=== PATIENT | female | born 1955 | race Caucasian/White ===

== ENCOUNTER 2016-10-24 22:22 | Observation (INO) ==
--- NOTE | 2016-10-24 23:01 | Emergency Department Note ---
Disposition Clinical Impression: Paresthesias, Gait abnormality, Weakness Disposition: Admitted As Inpatient Condition: Fair Referrals: NO,PCP [Non-Partnered Physician] - Forms: ED Satisfaction Letter Time of Disposition: 02:32 Neuro HPI - General Chief Complaint: ED Neuro Symptoms/Deficit Stated Complaint: tingling in bilateral arms Time Seen by Provider: 10/24/16 22:31 Source: patient, EMS Limitations: no limitations Nursing Notes Reviewed: Yes Vital Signs Reviewed: Yes - History of Present Illness HPI Narrative: 61-year-old female with multiple neurologic symptoms including tingling and numbness in her bilateral upper and lower extremities. Patient was seen 5 days ago for the same complaints started 8 days ago, she initially just had weakness in her left arm and left leg, underwent CT scan basic lab work that was negative , and follow-up with Dr. Bañuelos the neurologist on Friday 10/27, she comes in with worsening complaints, generalized weakness and multiple neurologic complaints including the above and also paresthesias in her lips, aching pain in her right neck, pain in her mid back. Patient denies fever chills, she has no history of IV drug abuse, she has no history known history of MS. Denies weight loss weight gain, chest pain abdominal pain dysuria hematuria Onset of Symptoms Date: 10/18/16 Symptom Onset Unknown: Yes Location: left arm, right arm, other History of same: Yes Severity: mild Quality: weakness, numbness, tingling Symptoms Improving: No Context: gradual onset On Anticoagulants: No Associated symptoms: Reports: vertigo, weakness. Denies: confusion, chest pain , nausea/vomiting - Related Data Home Medications: Home Medications Medication Instructions Recorded Confirmed Cipro 02/20/16 Previous Rx's Medication Instructions Recorded HydrOXYzine Pamoate 25 mg PO QID PRN #20 capsule 02/20/16 PredniSONE [Deltasone] 20 mg PO DAILY #3 tablet 02/20/16 Aspirin [Lo-Dose Aspirin EC] 81 mg PO DAILY #20 tablet. 10/21/16 Lisinopril [Zestril] 10 mg PO DAILY #14 tablet 10/21/16 Allergies/Adverse Reactions: Allergies Allergy/AdvReac Type Severity Reaction Status Date / Time No Known Allergies Allergy Verified 10/21/16 13:07 Review of Systems: All systems were reviewed with historian and negative except as per below, or as documented in the HPI. Constitutional: Denies: fever, chills, weight changes Eyes: Denies: vision changes, eye pain ENT: Denies: nasal congestion, sore throat CV: Denies: chest pain, palpitations, leg swelling Resp: Denies: cough, dyspnea, wheezes, hemoptysis GI: Denies: abdominal pain, N/V/D/C, hematochezia, melena Denies: dysuria, hematuria MSK: Denies: back pain, neck pain, extremity pain Skin: Denies: new rashes, new lesions Neuro: dizziness, weakness, sensory changes, NAVA Denies: gait difficulty Psych: Denies: anxiety, depression All systems ED: reviewed and negative except as stated. Past Medical History - Past Medical History Attestation: Yes The following information was validated with the patient. Source: patient Medical history: Reports: no medical history Psychiatric history: Reports: no psych history - Social History Smoking Status: Never smoker Smokeless Tobacco Status: No Alcohol use: Reports: none Drug use: Reports: none Physical Exam Constitutional: Vitals viewed and are normal, appears moderately anxious. HEENT: NCAT, sclera anicteric, PERRLA bilaterally, normal external ears bilaterally, nasal septum nondeviated, average dentition, MMM Neck: normal inspection, neck is supple, trachea midline, no JVD Resp: normal chest inspection, CTA bilaterally, no resp distress, symmetric chest rise CV: RRR, no m/g/r, Pulses +2 Rad, +2 DP/PT bilaterally, no pedal edema GI: normal inspection, Soft, NTND, BS present and normoactive Back: normal inspection, no tenderness to palpation Neuro: A&O3, CN II-XII grossly intact bilaterally, no gross motor or sensory deficits bilaterally positive hints exam with slight bidirectional nystagmus MSK: normal inspection, bilateral UE and LE with normal ROM and no deformities Psych: Anxious Skin: No rashes, skin warm, dry, intact - General Limitations: no limitations General appearance: alert, in no apparent distress Course Course Narrative: 59-year-old female with multiple neurologic complaints, plain CT was negative without contrast with a CTA head and neck to evaluate for posterior symptomology vertebral artery patency, after this, plan admit for symptom control, - Reevaluation(s) Reevaluation #1: Admitted to Dr Prado medicine service for further eval and neurology consult. Time: 02:33 Vital Signs Temperature 97.7 F 10/24/16 22:23 Pulse Rate 83 10/24/16 22:23 Respiratory Rate 20 10/24/16 22:23 Blood Pressure 152/91 10/24/16 22:23 O2 Sat by Pulse Oximetry 99 10/24/16 22:23 Temperature 97.7 F 10/24/16 22:23 Pulse Rate 85 10/25/16 02:07 Respiratory Rate 16 10/25/16 02:07 Blood Pressure 130/76 10/25/16 02:07 O2 Sat by Pulse Oximetry 96 10/25/16 02:07 Oxygen Delivery Oxygen Delivery Room Air Neuro Symptoms/Deficit - MDM Narrative Medical decision making narrative: 61-year-old female with one half weeks of multiple neurologic symptoms including dizziness weakness gait abnormality, patient has essentially nonfocal neurologic exam except for a positive hints exam, but no other focal neurologic deficits, CT of head and neck were negative. Patient likely needs further workup with MRI imaging may be EMG testing and neurology consultation admitted to hospitalist service in stable condition - Differential Diagnosis Likely: cerebrovascular accident, subarachnoid hemorrhage, transient cerebral ischemia, convulsions - Medical Records Medical records reviewed: Yes I reviewed the patient's medical records. - Lab Data Lab results reviewed: Yes I reviewed the patient's lab results. Result diagrams: 10/24/16 23:36 10/24/16 23:36 Lab Results 10/24/16 10/24/16 Range/Units 23:36 23:36 WBC 8.9 (4.3-11.1) K/mcL RBC 4.85 (3.82-4.97) M/mcL Hgb 13.8 (11.5-15.4) g/dL Hct 41.1 (35.3-44.9) % MCV 84.7 (83.0-100.0) fL MCH 28.5 (28.0-33.3) pg MCHC 33.6 (31.6-35.5) g/dL RDW 12.4 (11.5-14.5) % Plt Count 268 (140-400) K/mcL MPV 10.3 (9.4-12.4) fL Immature Gran % 0.2 (0-4) % Seg Neutrophils % 63.3 % Lymphocytes % 27.1 % Monocytes % 7.5 % Eosinophils % 1.3 % Basophils % 0.6 % Neutrophils # 5.6 (1.6-8.9) K/mcL Lymphocytes # 2.4 (0.6-4.6) K/mcL Monocytes # 0.7 (0.0-1.3) K/mcL Eosinophils # 0.1 (0.0-0.6) K/mcL Basophils # 0.1 (0.0-0.2) K/mcL Immature Plt Fraction 5.6 (1.1-6.1) % Sodium 141 (136-145) mEq/L Potassium 4.0 (3.5-4.5) mEq/L Chloride 105 (98-109) mEq/L Carbon Dioxide 26 (19-29) mEq/L BUN 8 (7-20) mg/dL Creatinine 0.71 (0.57-1.11) mg/dL Est GFR ( Amer) > 60 (> 60) Est GFR (Non-Af Amer) > 60 (> 60) BUN/Creatinine Ratio 11 (6-26) Glucose 105 H (70-99) mg/dL Calculated Osmolality 291 (280-300) Calcium 10.0 (8.6-10.8) mg/dL - Radiology Data Radiology results reviewed: Yes I reviewed the patient's radiology results. Angiography CT 10/25/16 23:28 IMPRESSION: CT HEAD: Negative. CTA NECK: Negative. CTA HEAD: Negative. D/ / Tania Ramirez MD / Tania Ramirez MD Interpreting Provider: Tania Ramirez MD Neck CTA 10/25/16 23:28 IMPRESSION: CT HEAD: Negative. CTA NECK: Negative. CTA HEAD: Negative. D/ / Tania Ramirez MD / Tania Ramirez MD Interpreting Provider: Tania Ramirez MD Attestation Statement - Attestation Attestation: IOscar MD, personally performed a history and physical exam of the patient and discussed their management with the resident. I reviewed the resident's note and agree with the documented findings, medical decision making , and plan of care. 61-year-old female presents to the emergency department with a complaint of increasing numbness and tingling of her arms bilaterally. Symptoms started 5 days ago when she developed a headache and then developed some tingling and numbness sensation in her left hand. She was seen here 3 days ago for this and had a CT of the head which was negative. She has a follow-up appointment scheduled with neurology for Thursday however today the symptoms seemed to worsen and now the numbness and tingling involves both arms and down her back. No focal weakness. No difficulty with speech or swallowing or balance. No blurred vision or double vision. She does complain of some muscle aches and cramps. No fever. On examination patient is a well-developed well-nourished well-appearing female in no acute distress. She is alert and oriented 3. There is no cyanosis or diaphoresis. Neck is supple and nontender with no lymphadenopathy and full range of motion. No gross focal neurological deficits. Breath sounds are clear and equal bilaterally. Heart regular rate and rhythm. Labs reviewed and unremarkable. CTA of the head and neck was negative. The hospitalist, Dr. Prado, was consulted and accepted admission of the patient.
[2016-10-24] MEDS ORDERED: 0.9 % Sodium Chloride 1,000 ML IV ONE (23:29)
[2016-10-24] MEDS ORDERED: Ondansetron 4 MG/2 ML VIAL IVP ONE (23:30)
[2016-10-24 23:43] LABS: Basophils # 0.1 K/mcL (0.0-0.2); Basophils % 0.6 %; Eosinophils # 0.1 K/mcL (0.0-0.6); Eosinophils % 1.3 %; Hematocrit 41.1 % (35.3-44.9); Hemoglobin 13.8 g/dL (11.5-15.4); Immature Granulocytes % 0.2 % (0-4); Immature Platelets 5.6 % (1.1-6.1); Lymphocytes # 2.4 K/mcL (0.6-4.6); Lymphocytes % 27.1 %; Mean Corpuscular HGB Conc 33.6 g/dL (31.6-35.5); Mean Corpuscular Hemoglobin 28.5 pg (28.0-33.3); Mean Corpuscular Volume 84.7 fL (83.0-100.0); Mean Platelet Volume 10.3 fL (9.4-12.4); Monocytes # 0.7 K/mcL (0.0-1.3); Monocytes % 7.5 %; Neutrophils # 5.6 K/mcL (1.6-8.9); Platelet Count 268 K/mcL (140-400); Red Blood Count 4.85 M/mcL (3.82-4.97); Red Cell Distribution Width 12.4 % (11.5-14.5); Segmented Neutrophils % 63.3 %
[2016-10-24 23:56] LABS: BUN/Creatinine Ratio 11 (6-26); Blood Urea Nitrogen 8 mg/dL (7-20); Carbon Dioxide 26 mEq/L (19-29); Chloride 105 mEq/L (98-109); Glucose 105 mg/dL (70-99); Osmolality,Calculated 291 (280-300); Sodium 141 mEq/L (136-145); eGFR For African Americans > 60 (> 60); eGFR For Non-African Americans > 60 (> 60)
[2016-10-25] MEDS ORDERED: Orphenadrine 60 MG/2 ML VIAL IVP ONE (02:26)
[2016-10-25] MEDS ORDERED: *HR* HYDROmorphone (PF) 1 MG/ML SYRINGE IVP PRN (02:50)
[2016-10-25] MEDS ORDERED: Naloxone 0.4 MG/ML INJ IVP PRN (02:50)
[2016-10-25] MEDS ORDERED: *HR* OxyCODONE Immed Rel 5 MG TABLET PO PRN (02:50)
[2016-10-25] MEDS ORDERED: *HR* Promethazine 25 MG/ML VIAL IVP PRN (02:50)
[2016-10-25] MEDS ORDERED: Acetaminophen 325 MG TABLET PO PRN (02:50)
[2016-10-25] MEDS ORDERED: 0.9 % Sodium Chloride 1,000 ML IVC SCH (03:00)
[2016-10-25 03:28] LABS: VBG HCO3 31.9 mEq/L (21-27); VBG PH 7.38 pH Units (7.32-7.42)
[2016-10-25 03:32] LABS: Ionized Calcium 1.2 mmol/L (1.15-1.35)
[2016-10-25 03:40] LABS: Hemoglobin A1C 5.4 %
[2016-10-25 03:41] LABS: Magnesium 1.8 mg/dL (1.6-2.6); Phosphorous 3.2 mg/dL (2.3-4.7)
[2016-10-25 03:44] LABS: INR 1.1; Prothrombin Time 12.2 Seconds (9.4-12.1); Rheumatoid Factor < 15 IU/mL (0-29)
[2016-10-25 03:46] LABS: Activated Partial Thrombo Time 33.7 Seconds (26.0-36.0)
[2016-10-25 04:03] LABS: Triiodothyronine (T3) Free 2.89 pg/mL (1.71-3.71)
--- NOTE | 2016-10-25 04:07 | Internal Med History&Physical ---
<Divina Harrell - Last Filed: 10/25/16 05:54> Date of Encounter: 10/25/16 Time of Encounter: 04:05 Assessment and Plan (1) Neurological complaint Current visit: Yes Status: Acute Patient presents with multiple neurological complaints. These complaints had an acute onset, were progressive and changing over the last week. CT head negative and CTA negative - this ruled out any mass, strictures, aneurysms or bleeds. Will do MRI t evaluate for other serious concerns including MS, neuropathies or inflammation. Will get labs including thyroid panel, CRP, ESR, lactic acid, MARTIR, rheumatoid factor. Patient scheduled to see neurology on Thursday, will consult for evaluation as patient has presented with changing symptoms. Will monitor patient and treat symptoms. 1. MRI - head, cervical/thoracic/lumbar spine 2. Labs: thyroid panel, CRP, ESR, lactic acid, MARTIR... 3. Consult neurology 4. Supportive care (2) Hypertension Current visit: No Status: Acute Patient reports elevated blood pressures over the last 2 weeks. She has not been taking any medication at home. Will monitor blood pressure and treat if indicated. Qualifiers: Hypertension type: unspecified secondary hypertension Qualified Code(s): I15.9 - Secondary hypertension, unspecified; I15 - Secondary hypertension Internal Medicine - H&P: HPI Chief complaint: Neuological complaints Admitted From: Emergency Dept Plans for Post Hospital Care: Home History of present illness: Ms. Gardner is a 61 year old female who reports no significant PMH and takes no medications at home. Patient is here today with multiple neurological complaints. She reports that this all started 8 days ago. She was driving and she got a very bad headache. She reports that her whole head felt tight and heavy. She has no history of migraines. The next morning when she woke up her left arm and leg felt heavy and weak. She came to the ED because this 5 akhtar ago. At that time her CT head was negative and she was discharged home to follow up with neurology outpatient on 10/27. Since then the left sided symptoms have improved but today she noticed that her right hand started tingling and felt heavy. Patient also reports that when she looks at something she has a hard time focusing but denies any vertigo or loss of peripheral vision. Patient currently denies any headache, difficulty swallowing, shortness of breath, chest pain, nausea/vomiting, abdominal pain, changes in bowel or bladder function. She denies any change in gait, difficulty walking, falling or syncope. In the ED, patient was afebrile with vitals signs within normal limits. CTA head and neck were negative. On exam, patient is awake and alert, in no acute distress. Pupils are equal and reactive with minor horizontal nystagmus on exam. Heart regular rate and rhythm. Lungs clear to auscultation. Upper extremity strength +5/5 bilaterally with motor and sensation grossly intact. Lower extremity strenght + 5/5 bilaterally with motor and sensation grossly intact. Past Med Surg Social Fam HX - Past Medical History Medical history: no medical history Psychiatric history: no psych history - Social History Smoking Status: Never smoker Smokeless Tobacco Status: No Alcohol use: none Drug use: none Internal Medicine - H&P: Meds No Known Home Drugs 10/25/16 [History] Allergies No Known Allergies Allergy (Verified 10/21/16 13:07) All Systems PM: A 10-system review of systems was performed and is negative for pertinent findings except as documented above in the HPI. - Constitutional Constitutional: fatigue, weakness, no chills, no fever(s) - EENT Eyes: blurry vision, no diplopia, no loss of peripheral vision, no loss of vision Nose, mouth and throat: no dysphagia, no nasal congestion, no nasal obstruction , no sore throat - Cardiovascular Cardiovascular ROS IM: no chest pain, no dyspnea, no dyspnea on exertion, no irregular heart rhythm, no lightheadedness, no palpitations - Respiratory Respiratory: no cough, no dyspnea, no wheezing - Gastrointestinal Gastrointestinal: no abdominal pain, no constipation, no diarrhea, no dysphagia , no hematemesis, no hematochezia, no melena, no vomiting - Genitourinary Genitourinary: no change in urinary stream, no dysuria - Musculoskeletal Musculoskeletal ROS IM: back pain, muscle cramps, neck pain - Neurological Neurological ROS: headache(s), lack of coordination, numbness, paresthesias, tingling, weakness, no abnormal gait, no abnormal hearing, no abnormal speech, no behavioral changes, no confusion, no convulsions, no dizziness, no focal weakness, no frequent falls, no loss of vision, no memory loss, no vertigo - Constitutional Vitals: Temp Pulse Resp BP Pulse Ox 97.4 F L 76 16 132/75 96 10/25/16 03:57 10/25/16 03:57 10/25/16 03:57 10/25/16 03:57 10/25/16 03:57 General appearance: Present: A&O X 3, no acute distress, answers questions appropriately - Head Head exam: Present: atraumatic, normal inspection, normocephalic - Eye Eye exam: Present: normal appearance, nystagmus, PERRL, conjuntiva pink - Respiratory Respiratory exam: Present: CTAB. Absent: rales, respiratory distress, rhonchi, wheezes - Cardiovascular Cardiovascular exam: Present: RRR - GI/Abdominal GI/Abdominal exam: Present: soft. Absent: firm, normal bowel sounds, rebound, rigid, tenderness - Extremities Exam Extremities exam: Present: normal inspection. Absent: pedal edema - Neurological Exam Neurological exam: Present: alert, CN II-XII intact, oriented X3, no focal deficits, strengths equal and symetr throughout - Expanded Neurological Exam Neurological exam expanded: Present: protecting the airway. Absent: ataxia, expressive aphasia Patient oriented to: Present: person, place, time Speech: Present: fluid speech Cranial Nerves: nystagmus PM: Abnormal Right, Abnormal Left Cerebellar function: finger to nose: Normal, heel to henry: Normal, Romberg: Normal Upper motor neuron: pronator drift: Normal Sensory exam: lower extremity light touch: Normal, upper extremity light touch: Normal Neuro motor strength exam: LUE: 5, RUE: 5, LLE: 5, RLE: 5 Coma Scale Eye Opening: Spontaneous Coma Scale Motor Response: Obeys Commands Coma Scale Verbal Response: Oriented Coma Scale Total: 15 Internal Med - H&P Results - Labs CBC & Chem 7: 10/24/16 23:36 10/24/16 23:36 Labs: Cardiac Enzymes 10/25/16 Range/Units 03:18 Troponin I 0.00 (0-0.03) ng/mL - ABG Interpretation ABG results: 10/25/16 03:18 VBG pH 7.38 VBG pCO2 54 H VBG pO2 21 L VBG HCO3 31.9 H - Impressions ITS Impressions Angiography CT 10/25/16 23:28 IMPRESSION: CT HEAD: Negative. CTA NECK: Negative. CTA HEAD: Negative. D/ / Tania Ramirez MD / Tania Ramirez MD Interpreting Provider: Tania Ramirez MD Neck CTA 10/25/16 23:28 IMPRESSION: CT HEAD: Negative. CTA NECK: Negative. CTA HEAD: Negative. D/ / Tania Ramirez MD / Tania Ramirez MD Interpreting Provider: Tania Ramirez MD <Arya Prado - Last Filed: 10/25/16 07:03> Date of Encounter: 10/25/16 Internal Medicine - H&P: HPI History of present illness: Ms. Gardner is a 61 year old female patient is admitted to [facility] via the emergency department when she presents with reports new onset, intermittent, migratory, abnormal neurologic symptoms. The patient was visited and interviewed and examined.. I examined this patient and my medical decision-making was reviewed with the Resident Physician. For this encounter, I have reviewed the documentation, treatment plan, and medical decision making. I agree with the documented findings, disposition and treatment plan as described except to the extent set forth below. Cumulative laboratory and radiographic database was reviewed and considered and discussed. Given the patient's presenting concerns, past medical history, clinical findings and symptoms, she is admitted at this time to undergo further evaluation and disposition. Past Med Surg Social Fam HX - Past Medical History Source: patient, old records reviewed Medical history: non-contributory, other Psychiatric history: other - Past Surgical History Surgical History: non-contributory, other - Social History Occupational status: employed Current living situation: With Family Activity Level: Independent ambulation, Mostly sedentary Recent Out of Country Travel Within the Last 8 Weeks: No Exposure or Possible Exposure to Illness During Travel: No All Systems PM: A 10-system review of systems was performed and is negative for pertinent findings except as documented above in the HPI. - Constitutional Vitals: Temp Pulse Resp BP Pulse Ox 97.4 F L 76 16 132/75 96 10/25/16 03:57 10/25/16 03:57 10/25/16 03:57 10/25/16 03:57 10/25/16 04:00 Internal Med - H&P Results - Labs CBC & Chem 7: 10/24/16 23:36 10/24/16 23:36 Labs: Cardiac Enzymes 10/25/16 Range/Units 03:18 Troponin I 0.00 (0-0.03) ng/mL Vital Signs Temp Pulse Resp BP Pulse Ox 10/25/16 04:00 96 10/25/16 03:57 97.4 F L 76 16 132/75 96 10/25/16 03:19 18 145/84 10/25/16 02:07 85 16 130/76 96 10/25/16 00:54 85 16 143/76 98 10/24/16 23:21 85 16 134/98 98 10/24/16 22:23 97.7 F 83 20 152/91 99 Intake and Output 10/24/16 10/24/16 10/25/16 15:59 23:59 07:59 Other: Weight 58.06 kg 58.06 kg Patient Weight 10/25/16 23:59 Weight 58.06 kg Allergies Allergy/AdvReac Type Severity Reaction Status Date / Time No Known Allergies Allergy Verified 10/21/16 13:07 - ABG Interpretation ABG results: 10/25/16 03:18 VBG pH 7.38 VBG pCO2 54 H VBG pO2 21 L VBG HCO3 31.9 H - Impressions ITS Impressions Angiography CT 10/25/16 23:28 IMPRESSION: CT HEAD: Negative. CTA NECK: Negative. CTA HEAD: Negative. D/ / Tania Ramirez MD / Tania Ramirez MD Interpreting Provider: Tania Ramirez MD Neck CTA 10/25/16 23:28 IMPRESSION: CT HEAD: Negative. CTA NECK: Negative. CTA HEAD: Negative. D/ / Tania Ramirez MD / Tania Ramirez MD Interpreting Provider: Tania Ramirez MD Abnormal lab results ESR 33 mm/hr (0-15) H 10/25/16 03:18 PT 12.2 Seconds (9.4-12.1) H 10/25/16 03:18 VBG pCO2 54 mmHg (41-51) H 10/25/16 03:18 VBG pO2 21 mmHg (25-40) L 10/25/16 03:18 VBG HCO3 31.9 mEq/L (21-27) H 10/25/16 03:18 Glucose 105 mg/dL (70-99) H 10/24/16 23:36 Vitamin B12 1002 pg/mL (213-816) H 10/25/16 03:18 Laboratory Last Values WBC 8.9 K/mcL (4.3-11.1) 10/24/16 23:36 RBC 4.85 M/mcL (3.82-4.97) 10/24/16 23:36 Hgb 13.8 g/dL (11.5-15.4) 10/24/16 23:36 Hct 41.1 % (35.3-44.9) 10/24/16 23:36 MCV 84.7 fL (83.0-100.0) 10/24/16 23:36 MCH 28.5 pg (28.0-33.3) 10/24/16 23:36 MCHC 33.6 g/dL (31.6-35.5) 10/24/16 23:36 RDW 12.4 % (11.5-14.5) 10/24/16 23:36 Plt Count 268 K/mcL (140-400) 10/24/16 23:36 MPV 10.3 fL (9.4-12.4) 10/24/16 23:36 Immature Gran % 0.2 % (0-4) 10/24/16 23:36 Seg Neutrophils % 63.3 % 10/24/16 23:36 Lymphocytes % 27.1 % 10/24/16 23:36 Monocytes % 7.5 % 10/24/16 23:36 Eosinophils % 1.3 % 10/24/16 23:36 Basophils % 0.6 % 10/24/16 23:36 Neutrophils # 5.6 K/mcL (1.6-8.9) 10/24/16 23:36 Lymphocytes # 2.4 K/mcL (0.6-4.6) 10/24/16 23:36 Monocytes # 0.7 K/mcL (0.0-1.3) 10/24/16 23:36 Eosinophils # 0.1 K/mcL (0.0-0.6) 10/24/16 23:36 Basophils # 0.1 K/mcL (0.0-0.2) 10/24/16 23:36 Immature Plt Fraction 5.6 % (1.1-6.1) 10/24/16 23:36 ESR 33 mm/hr (0-15) H 10/25/16 03:18 PT 12.2 Seconds (9.4-12.1) H 10/25/16 03:18 INR 1.1 10/25/16 03:18 APTT 33.7 Seconds (26.0-36.0) 10/25/16 03:18 VBG pH 7.38 pH Units (7.32-7.42) 10/25/16 03:18 VBG pCO2 54 mmHg (41-51) H 10/25/16 03:18 VBG pO2 21 mmHg (25-40) L 10/25/16 03:18 VBG HCO3 31.9 mEq/L (21-27) H 10/25/16 03:18 Sodium 141 mEq/L (136-145) 10/24/16 23:36 Potassium 4.0 mEq/L (3.5-4.5) 10/24/16 23:36 Chloride 105 mEq/L (98-109) 10/24/16 23:36 Carbon Dioxide 26 mEq/L (19-29) 10/24/16 23:36 BUN 8 mg/dL (7-20) 10/24/16 23:36 Creatinine 0.71 mg/dL (0.57-1.11) 10/24/16 23:36 Est GFR ( Amer) > 60 (> 60) 10/24/16 23:36 Est GFR (Non-Af Amer) > 60 (> 60) 10/24/16 23:36 BUN/Creatinine Ratio 11 (6-26) 10/24/16 23:36 Glucose 105 mg/dL (70-99) H 10/24/16 23:36 Est Mean Plasma Glucose 108 mg/dl 10/25/16 03:18 Hemoglobin A1c 5.4 % (-5.6) 10/25/16 03:18 Calculated Osmolality 291 (280-300) 10/24/16 23:36 Lactic Acid 0.8 mmol/L (0.5-2.2) 10/25/16 03:18 Calcium 10.0 mg/dL (8.6-10.8) 10/24/16 23:36 Ionized Calcium 1.20 mmol/L (1.15-1.35) 10/25/16 03:18 Phosphorus 3.2 mg/dL (2.3-4.7) 10/25/16 03:18 Magnesium 1.8 mg/dL (1.6-2.6) 10/25/16 03:18 Creatine Kinase 95 Units/L (29-168) 10/25/16 03:18 Troponin I 0.00 ng/mL (0-0.03) 10/25/16 03:18 C-Reactive Protein 1 mg/L (Less than 5) 10/25/16 03:18 Vitamin B12 1002 pg/mL (213-816) H 10/25/16 03:18 Folate 16.7 ng/mL (7.0-31.4) 10/25/16 03:18 TSH 2.531 mcIU/mL (0.350-4.840) 10/25/16 03:18 Free T4 1.19 ng/dl (0.70-1.48) 10/25/16 03:18 Free T3 2.89 pg/mL (1.71-3.71) 10/25/16 03:18 Rheumatoid Factor < 15 IU/mL (0-29) 10/25/16 03:18 - Attending Attestation My signature below is to certify that this patient is under my care and that I, or the Resident Physician working with me, has had a [id number] encounter with this patient. Plan of care has been reviewed and discussed in detail with the patient. Questions addressed. Advance care directive discussion briefly addressed. The patient does not clearly helped her restrictions at this time. Outpatient medication schedules will be reviewed, confirmed and facilitated as appropriate. Reconciliation of home treatments, including adjustments, substitutions and reintroduction into treatment regimen will address necessary maintenance therapies for chronic pre-existing medical conditions. Hospital course dictated by clinical findings, treatment response and potential consultative interventions. The patient is at low risk for acute clinical decline and morbidity given his presenting chief complaint, findings and comorbidities. Condition is serious. Prognosis is guarded. CODE STATUS is full.
[2016-10-25 04:18] LABS: Folate 16.7 ng/mL (7.0-31.4); Vitamin B12 1002 pg/mL (213-816)
[2016-10-25 04:32] LABS: Thyroid Stimulating Hormone 2.531 mcIU/mL (0.350-4.840)
[2016-10-25 07:56] LABS: Bilirubin,Urine Negative (Negative); Blood,Urine Trace (Negative); Clarity,Urine Clear (Clear); Color,Urine Yellow (Yellow); Glucose,Urine (UA) Normal (Normal); Ketones,Urine Negative (Negative); Leukocyte Esterase,Urine Negative (Negative); Nitrite,Urine Negative (Negative); Protein,Urine Negative (Neg-Trace); Specific Gravity,Urine > 1.030 (1.010-1.025); Urobilinogen,Urine Normal (Normal)
[2016-10-25 07:57] LABS: Bacteria,Urine None Seen per hpf (None-Few); Hyaline Casts,Urine None Seen per lpf (None-Few); Squamous Epithelial Cell,Urine Moderate per lpf (None-Few); WBC,Urine 0-3 per hpf (0-3)
--- NOTE | 2016-10-25 09:52 | Neurology - Consult Note ---
Date of Encounter: 10/25/16 Time of Encounter: 09:50 Assessment and Plan (1) Paresthesias Status: Acute This patient was been complaining SUBJECTIVE paresthesias in both upper extremity predominantly on the left than on the right side without any focal findings on current neurological examination . CT scan of the head and neck sprain reported as negative she is scheduled for MRI of the neuraxis ordered by the admitting physician , at this time I do not think that she will require MRI of the whole neuraxis strongly suspect that her symptoms are likely related to degenerative disease of the cervical spine she could have localized impingement or perhaps may have some foraminal stenosis causing these symptoms that we could do an MRI of the cervical spine without contrast . At the same time I do agree with MRI of the brain in order to exclude any intracranial abnormalityshe is slightly older in the each group and less likely symptoms could be related to a demyelinating disease and at the same time no history suggestive regardless he can get an MRI of the brain to exclude any intracranial etiology . In the meantime patient may benefit from loading dose of steroids and at the same time suggest to start her on gabapentin 300 mg at bedtime , in fact it may help her some underlying anxiety symptoms that she has been experiencing . Again I do not find any focal neurological deficit on her neurological examination if imaging studies were negative patient could be discharged to home . May start solumedrol 60 mg iv X 1 neurontin 300 qhs (2) Weakness Status: Acute History of Present Illness HPI: Ms. Gardner is a 61 year old female who reports no significant PMH and takes no medications at home. Patient is here today with multiple neurological complaints. She reports that this all started 8 days ago. She was driving and she got a very bad headache. She reports that her whole head felt tight and heavy. She has no history of migraines. The next morning when she woke up her left arm and leg felt heavy and weak. She came to the ED because this 5 days ago. At that time her CT head was negative and she was discharged home to follow up with neurology outpatient on 10/27. Since then the left sided symptoms have improved but today she noticed that her right hand started tingling and felt heavy. Patient also reports that when she looks at something she has a hard time focusing but denies any vertigo or loss of peripheral vision. Patient currently denies any headache, difficulty swallowing, shortness of breath, chest pain, nausea/vomiting, abdominal pain, changes in bowel or bladder function. She denies any change in gait, difficulty walking, falling or syncope. Past Med Surg Social Fam HX - Past Medical History Medical history: non-contributory, other Psychiatric history: other - Past Surgical History Surgical History: non-contributory, other - Social History Smoking Status: Never smoker Smokeless Tobacco Status: No Alcohol use: none Drug use: none - Family History Mother Hx Family Cardiac Disorders: Yes (CHF) Hx Family Respiratory Disorders: Yes (COPD) Medications and Allergies No Known Home Drugs 10/25/16 [History] Allergies No Known Allergies Allergy (Verified 10/21/16 13:07) All Systems: A 10-system review of systems was performed and is negative for pertinent findings except as documented above in the HPI. Physical Examination - Vital Signs Vital Signs: Initial Vital Signs Temp Pulse Resp BP Pulse Ox 97.7 F 83 20 152/91 99 10/24/16 22:23 10/24/16 22:23 10/24/16 22:23 10/24/16 22:23 10/24/16 22:23 - Constitutional General appearance: comfortable - Neurologic Detailed motor examination: full strength in all major muscle groups Motor examination - right side: 5/5: deltoids, biceps, triceps, wrist flexion, wrist extension, drug abuse treatment specialist, hip flexors, tibialis Anterior, quadriceps, toe extension (EHL), plantarflexion Motor examination - left side: 5/5: deltoids, biceps, triceps, wrist flexion, wrist extension, hip flexors, drug abuse treatment specialist, quadriceps, tibialis Anterior, toe extension (EHL), plantarflexion Mental Status Examination: awake, alert, oriented to person, oriented to place, oriented to time, follows commands appropriately, answers questions appropriately, no agnosia, no aphasia, no aproxia Cranial nerve examination: PERRL, EOMI, visual tapia intact, corneal reflexes brisk symmetrically, sensory to face intact, mastication intact, no facial asymmetry is present, no dysarthria, hearing is intact symmetrically, soft palate elevates bilaterally upon phonation, gag reflex intact, flexes SCM and trapezius muscles symmetrically with full power, tongue protrudes midline, no atrophy or facial fasiculations present Cerebellar examination: no dysmetria, performs finger to nose and heel to henry symmetrically without ataxia, no gait ataxia, no truncal ataxia, no difficulty with rapid alternating movements Results - Laboratory Findings CBC and BMP: 10/24/16 23:36 10/24/16 23:36 Abnormal lab findings: Abnormal lab results ESR 33 mm/hr (0-15) H 10/25/16 03:18 PT 12.2 Seconds (9.4-12.1) H 10/25/16 03:18 VBG pCO2 54 mmHg (41-51) H 10/25/16 03:18 VBG pO2 21 mmHg (25-40) L 10/25/16 03:18 VBG HCO3 31.9 mEq/L (21-27) H 10/25/16 03:18 Glucose 105 mg/dL (70-99) H 10/24/16 23:36 Vitamin B12 1002 pg/mL (213-816) H 10/25/16 03:18 Ur Specific [place] > 1.030 (1.010-1.025) H 10/25/16 07:50 Urine Blood Trace (Negative) H 10/25/16 07:50 Urine Microscopic RBC 5-15 per hpf (0-3) H 10/25/16 07:50 Ur Squamous Epith Cells Moderate per lpf (None-Few) H 10/25/16 07:50 - Diagnostic Findings Additional findings: CT scan of the head and neck was negative Consult Discharge Plan - Plan Additional Instructions: Follow up with PCP, thyroid nodule noted 2.1 x 1.0, ultrasound recommended. Follow up with neurology clinic at [place] for bilateral paresthesias. Referrals: Sally Macias MD [Primary Care Provider] -
[2016-10-25 10:57] VITALS: BP 116/72
--- NOTE | 2016-10-25 14:50 | Discharge Summary ---
Date of Encounter: 10/25/16 Time of Encounter: 14:46 - Discharge Diagnosis (1) Paresthesias Priority: Primary Status: Acute (2) Thyroid nodule Priority: Secondary Status: Acute (3) Hypertension Priority: Secondary Status: Acute Qualifiers: Hypertension type: unspecified secondary hypertension Qualified Code(s): I15.9 - Secondary hypertension, unspecified; I15 - Secondary hypertension - Discharge Medications Home Medications: No Known Home Drugs 10/25/16 [History] Allergies/Adverse Reactions: Allergies No Known Allergies Allergy (Verified 10/21/16 13:07) Procedures/tests Complete & Pending: Procedures Performed prior 72 hours Category Date Time Status MR cervical spine wo con [MR] Routine MRI 10/25/16 11:51 Draft MR head/brain wo/w con [MR] Routine MRI 10/25/16 11:51 Completed Date of admission: 10/25/16 03:01 Primary care physician: Sally Macias MD Consults: Neurology Discharging clinician: Abdulkadir Rios Anticipated date of discharge: 10/25/16 - Patient Status Disposition: Home, Self-Care Condition: Fair Functional capacity at discharge: independent ambulation Overall status at discharge: patient is back to baseline - Discharge Instructions Follow Up With: Sally Macias MD [Primary Care Provider] - Additional Instructions: Follow up with PCP, thyroid nodule noted 2.1 x 1.0, ultrasound recommended. Follow up with neurology clinic at [place] for bilateral paresthesias. - Diet and Activity Activity: increase activity as tolerated Diet: advance to your usual diet Interval History: Ms. Gardner is a 61 year old female who reports no significant PMH and takes no medications at home. Patient is here today with multiple neurological complaints. She reports that this all started 8 days ago. She was driving and she got a very bad headache. She reports that her whole head felt tight and heavy. She has no history of migraines. The next morning when she woke up her left arm and leg felt heavy and weak. She came to the ED because this 5 akhtar ago. At that time her CT head was negative and she was discharged home to follow up with neurology outpatient on 10/27. Since then the left sided symptoms have improved but today she noticed that her right hand started tingling and felt heavy. Patient also reports that when she looks at something she has a hard time focusing but denies any vertigo or loss of peripheral vision. Patient currently denies any headache, difficulty swallowing, shortness of breath, chest pain, nausea/vomiting, abdominal pain, changes in bowel or bladder function. She denies any change in gait, difficulty walking, falling or syncope. In the ED, patient was afebrile with vitals signs within normal limits. CTA head and neck were negative. On exam, patient is awake and alert, in no acute distress. Pupils are equal and reactive with minor horizontal nystagmus on exam. Heart regular rate and rhythm. Lungs clear to auscultation. Upper extremity strength +5/5 bilaterally with motor and sensation grossly intact. Lower extremity strenght + 5/5 bilaterally with motor and sensation grossly intact. Hospital course: Ms. Gardner is a 61 year old female admitted due to bilateral paresthesias. She had extensive workup including CT scan of the head and neck with and without IV contrast. Brain MRI with and without IV contrast, a spine MRI with and without IV contrast. She was evaluated by neurology. 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 Additionally, an incidental finding of a thyroid nodule was noted. The patient is otherwise stable, she was evaluated by neurology, they recommended outpatient follow-up if the brain MRI results were unremarkable. At this point , the patient is otherwise asymptomatic, we will discharge the patient home today. The patient was instructed to follow up with her primary care physician in regards to her thyroid nodule, and with neurology for the bilateral paresthesias. - Time Spent with Patient Total time spent providing and/or coordinating discharge services: Greater than 30 minutes - Constitutional Vitals: Temp Pulse Resp BP Pulse Ox 97.7 F 61 15 116/72 98 10/25/16 10:56 10/25/16 10:56 10/25/16 10:56 10/25/16 10:56 10/25/16 10:56 General appearance: Present: A&O X 3, no acute distress, answers questions appropriately - Head Head exam: Present: atraumatic, normocephalic - Eye Eye exam: Present: PERRL, conjuntiva pink, sclera anicteric Pupils: Present: PERRL - Neck Neck exam general surgery: Present: supple, trachea midline. Absent: lymphadenopathy - Respiratory Respiratory exam: Present: CTAB. Absent: accessory muscle use, rales, rhonchi, wheezes - Cardiovascular Cardiovascular exam: Present: RRR, +S1, +S2. Absent: diastolic murmur, gallop, rubs, systolic murmur - GI/Abdominal GI/Abdominal exam: Present: normal bowel sounds, soft, no peritoneal signs. Absent: distended, tenderness - Extremities Exam Extremities exam: Present: warm, radial pulses palpable and symetrical. Absent : calf tenderness, cyanotic, pedal edema - Neurological Exam Neurological exam: Present: CN II-XII intact, oriented X3, no focal deficits. Absent: pronater drift, facial droop, speech deficit - Skin Skin exam: Present: dry, intact
[2016-10-28 07:21] LABS: ANA IgG by ELISA NONE DETECTED (None Detected)
== END 2016-10-25 17:15 | disposition home or self-care (01) ==
LOC: EMEROO 22:22 → 3BNU 22:22
PROVIDERS: ADMIT Internal Medicine; ATTEND Nurse Practitioner Family